=== PATIENT | female | born 1960 | race Caucasian/White ===

== ENCOUNTER 2017-04-01 15:25 | Emergency (ER) | payer OTHER ==
--- NOTE | 2017-04-01 15:31 | PDOC ---
History of Present Illness <Elisa Madrigal - Last Filed: 04/01/17 15:47> - General History Source: Patient Exam Limitations: No Limitations - History of Present Illness Initial Comments: 04/01/17 15:55 The patient is a 57 year old female with no significant past medical history, who presents to the ED with waxing and waning right eye pain for 3 days. Patient states she feels like something is inside her right eye. She states she isn't able to sleep due to the right eye pain, but also notes being very anxious as her son is leaving for college. She states she has been doing a lot of work around the house as well. Patient denies blurry vision, double vision. Patient denies tearing or discharge from the eye. Patient uses eye glasses for reading. Patient denies ear pain, neck pain. Patient last saw her opthamologist 3 years ago. Patient denies fever, chills, nausea, vomiting, diarrhea. OD: 20/25 OS: 20/40 <Breezy Boswell - Last Filed: 04/01/17 15:58> - General Chief Complaint: Eye Problem Stated Complaint: RIGHT EYE PAIN Time Seen by Provider: 04/01/17 15:31 Past History - Past Medical History Psychiatric Problems: Yes (ANXIETY) - Psycho/Social/Smoking Cessation Hx Anxiety: Yes Suicidal Ideation: No Smoking History: Never smoked Hx Alcohol Use: Yes <Elisa Madrigal - Last Filed: 04/01/17 15:47> <Breezy Boswell - Last Filed: 04/01/17 15:58> - Past Medical History Allergies/Adverse Reactions: Allergies Allergy/AdvReac Type Severity Reaction Status Date / Time No Known Allergies Allergy Verified 04/01/17 15:27 Home Medications: Ambulatory Orders Biotin 1 mg PO DAILY 04/01/17 Black Cohosh 40 mg PO DAILY 04/01/17 Cholecalciferol (Vitamin D3) [Vitamin D3] 2,000 unit PO DAILY 04/01/17 Cyanocobalamin (Vitamin B-12) [Vitamin B-12] 1 cap PO DAILY 04/01/17 Review of Systems - Review of Systems Able to Perform ROS?: Yes Comments:: 04/01/17 15:56 GENERAL/CONSTITUTIONAL: No fever or chills. No weakness. HEAD, EYES, EARS, NOSE AND THROAT: + right eye pain. No ear pain or discharge. No sore throat. CARDIOVASCULAR: No chest pain or shortness of breath. RESPIRATORY: No cough, wheezing, or hemoptysis. GASTROINTESTINAL: No nausea, vomiting, diarrhea or constipation. GENITOURINARY: No dysuria, frequency, or change in urination. MUSCULOSKELETAL: No joint or muscle swelling or pain. No neck or back pain. SKIN: No rash NEUROLOGIC: No headache, vertigo, loss of consciousness, or change in strength/ sensation. ENDOCRINE: No increased thirst. No abnormal weight change. HEMATOLOGIC/LYMPHATIC: No anemia, easy bleeding, or history of blood clots. ALLERGIC/IMMUNOLOGIC: No hives or skin allergy. <Breezy Boswell - Last Filed: 04/01/17 15:58> *Physical Exam - Vital Signs Last Vital Signs Temp Pulse Resp BP Pulse Ox 98.8 F 66 16 131/80 99 04/01/17 15:27 04/01/17 15:27 04/01/17 15:27 04/01/17 15:27 04/01/17 15:27 - Physical Exam Comments: 04/01/17 15:57 GENERAL: Awake, alert, and fully oriented, in no acute distress HEAD: No signs of trauma EYES: PERRLA, EOMI, sclera anicteric, conjunctiva clear ENT: Auricles normal inspection, hearing grossly normal, nares patent, oropharynx clear without exudates. Moist mucosa NECK: Normal ROM, supple, no lymphadenopathy, JVD, or masses EXTREMITIES: Normal range of motion, no edema. No clubbing or cyanosis. No cords, erythema, or tenderness NEUROLOGICAL: Cranial nerves II through XII grossly intact. Normal speech, normal gait SKIN: Warm, Dry, normal turgor, no rashes or lesions noted. <Breezy Boswell - Last Filed: 04/01/17 15:58> Medical Decision Making - Medical Decision Making 04/01/17 15:47 Pt presents to the ED complaining of r eye floaters and mild pain that has been persistent for three days. No indication of eye or intracranial pathology. Visual acuity in the affected eye is intact. Will discharge home with follow up with her opthalmologist this week. <Elisa Madrigal - Last Filed: 04/01/17 15:47> *DC/Admit/Observation/Transfer - Discharge Dispostion Admit: No <Elisa Madrigal - Last Filed: 04/01/17 15:47> - Attestations Scribe Attestion: 04/01/17 15:58 Documentation prepared by Breezy Boswell, acting as medical sales consultant for Elisa Madrigal MD, MD. <Breezy Boswell - Last Filed: 04/01/17 15:58> Diagnosis at time of Disposition: Eye pain Qualifiers: Laterality: right Qualified Code(s): H57.11 - Ocular pain, right eye - Discharge Dispostion Condition at time of disposition: Stable - Patient Instructions Printed Discharge Instructions: DI for Eye Pain Additional Instructions: return to the ED for worsening vision, severe pain, fever, severe headache, double vision, other new or worsening symptoms.
[2017-04-01 15:49] VITALS: BP 131/80; PULSE 66; TEMP 98.8; BMI 25.7
== END 2017-04-01 15:57 | disposition home or self-care (01) ==
LOC: FER 15:25
DX: H57.11 Ocular pain, right eye (principal); F41.9 Anxiety disorder, unspecified
CPT/HCPCS: 99282-25